=== PATIENT | female | born 1960 | race Caucasian/White ===

== ENCOUNTER 2019-01-15 08:10 | Day surgery (SDC) | payer MEDICAID, OTHER ==
[~2019-01-15] VITALS: Ht 149.9 cm; Wt 49.9 kg
[2019-01-15] MEDS ORDERED: fentaNYL 0.05 MG/ML VIAL ONE (10:06)
[2019-01-15] MEDS ORDERED: MIDAZOLAM 2 MG/2 ML VIAL ONE (10:07)
[2019-01-15] MEDS ORDERED: LIDOCAINE 2% 100 MG/5 ML UJET TP ONE (10:07)
[2019-01-15] MEDS ORDERED: MIDAZOLAM 2 MG/2 ML VIAL IVP ONE (10:45)
[2019-01-15] MEDS ORDERED: fentaNYL 0.05 MG/ML VIAL IVP ONE (14:30)
== END 2019-01-15 12:17 | disposition home or self-care (01) ==
LOC: MDS 08:10 → MMU 08:10 → MDS 12:17
PROVIDERS: ATTEND Internal Medicine Gastroenterology
DX: K20.9 Esophagitis, unspecified (principal); K31.89 Other diseases of stomach and duodenum; E11.9 Type 2 diabetes mellitus without complications; Z90.49 Acquired absence of other specified parts of digestive tract; Z85.038 Personal history of other malignant neoplasm of large intestine; Z98.0 Intestinal bypass and anastomosis status; R19.4 Change in bowel habit
CPT/HCPCS: 36415; 43239; 45378; 86677; 88305; 88313; J2250; J3010